=== PATIENT | male | born 2000 | race Caucasian/White ===

== ENCOUNTER 2024-03-12 01:15 | Emergency (ER) | payer SELFPAY ==
[~2024-03-12] VITALS: Ht 167.6 cm; Wt 63.5 kg
[2024-03-12 01:21] VITALS: BP 145/97; PULSE 103; RESP 20; TEMP 98.8; O2SAT 98
[2024-03-12 01:49] VITALS: BP 145/97; PULSE 103; RESP 20; TEMP 98.8; O2SAT 98
== END 2024-03-12 01:49 | disposition home or self-care (01) ==
LOC: EDBD 01:15 → MED 01:15
DX: Z04.1 Encounter for examination and observation following transport accident (principal); R03.0 Elevated blood-pressure reading, without diagnosis of hypertension; V43.52XA Car driver injured in collision with other type car in traffic accident, initial encounter; Y93.89 Activity, other specified; Y92.89 Other specified places as the place of occurrence of the external cause; Y99.8 Other external cause status
CPT/HCPCS: 99283